=== PATIENT | female | born 1960 | race Caucasian/White ===

== ENCOUNTER 2022-12-11 11:31 | Emergency (ER) | payer OTHER ==
[2022-12-11 11:43] VITALS: BP 114/74; PULSE 78; RESP 16; TEMP 98.2; BMI 29.7
[2022-12-11] MEDS ORDERED: ACETAMINOPHEN 325 MG TABLET (FP) PO ONE (12:41)
[2022-12-11] MEDS ORDERED: ACETAMINOPHEN 325 MG TABLET (FP) ONE (12:43)
== END 2022-12-11 14:26 | disposition home or self-care (01) ==
LOC: JER 11:31 → JERFT 11:31
DX: M25.522 Pain in left elbow (principal); M25.532 Pain in left wrist; W01.0XXA Fall on same level from slipping, tripping and stumbling without subsequent striking against object, initial encounter
CPT/HCPCS: 73060-TC-LT-FY; 73070-TC-LT-FY; 73110-TC-LT-FY; 82962; 99284-25

== ENCOUNTER 2024-11-06 18:44 | Emergency (ER) | payer OTHER ==
[2024-11-06 18:57] VITALS: BP 127/81; PULSE 85; RESP 16; TEMP 98; BMI 26.6
[2024-11-06] MEDS ORDERED: ACETAMINOPHEN 325 MG TABLET (FP) ONE (20:46)
[2024-11-06] MEDS ORDERED: LIDOCAINE 4% PATCH TP ONE (20:47)
[2024-11-06] MEDS: ACETAMINOPHEN 500 MG TABLET (FP) PO ONE (20:52)
[2024-11-06] MEDS: LIDOCAINE 4% PATCH TP ONE (20:52)
[2024-11-06] MEDS ORDERED: LIDOCAINE PATCH REMOVAL MC SCH (22:00)
[2024-11-06 22:16] LABS: BASO % 0.8 % (0-2.0); EOS % 1.3 % (0-4.5); HEMOGLOBIN 15.9 GM/dL (10.7-15.3); LYMPH % 46.4 % (8-40); MCH 29.8 pg (25.7-33.7); MCHC 33.9 g/dl (32.0-36.0); MEAN PLT VOLUME 6.7 fl (7.5-11.1); MONO % 6.1 % (3.8-10.2); NEUT % 45.4 % (42.8-82.8); PLATELET COUNT 256 10^3/uL (134-434); RBC 5.34 M/mm3 (3.60-5.2); RDW 13.1 % (11.6-15.6); WHITE BLOOD COUNT 7.9 K/mm3 (4.0-10.0)
[2024-11-06 22:30] LABS: INR 1.17 (0.83-1.09); PROTHROMBIN TIME (PATIENT) 13.2 SEC (9.7-13.0)
[2024-11-06 22:32] LABS: INR 1.19 (0.83-1.09); PROTHROMBIN TIME (PATIENT) 13.4 SEC (9.7-13.0)
[2024-11-06 22:33] LABS: ACTIVATED PTT 32.2 SECONDS (25.2-36.5)
[2024-11-06 22:34] LABS: POTASSIUM 3.8 mmol/L (3.5-5.1)
[2024-11-06 22:36] LABS: CALCIUM 10.3 mg/dL (8.5-10.1)
[2024-11-06 22:37] LABS: ALBUMIN 4.5 g/dl (3.4-5.0); BLOOD UREA NITROGEN 18.8 mg/dL (7-18)
[2024-11-06 22:40] LABS: CREATININE 0.8 mg/dL (0.55-1.3)
[2024-11-06 22:41] LABS: BILIRUBIN,TOTAL 0.6 mg/dL (0.2-1); TOT PROT 8.2 g/dl (6.4-8.2)
[2024-11-06] MEDS ORDERED: METHOCARBAMOL 500 MG TABLET ONE (22:59)
[2024-11-06] MEDS: METHOCARBAMOL 500 MG TABLET PO ONE (23:07)
== END 2024-11-07 01:47 | disposition left against medical advice (07) ==
LOC: JER 18:44
DX: M25.511 Pain in right shoulder (principal); M79.601 Pain in right arm; G89.29 Other chronic pain; R53.1 Weakness; Z20.822 Contact with and (suspected) exposure to COVID-19
CPT/HCPCS: 0241U-QW; 36415; 71046-TC-FY; 73030-TC-RT-FY; 80053; 84484; 85025; 85610; 85730; 93005; 93010; 99285-25

== ENCOUNTER 2025-06-10 06:04 | Day surgery (SDC) | payer OTHER ==
[2025-06-08 11:20] VITALS: BMI 26.2
[2025-06-10] MEDS ORDERED: ACETAMINOPHEN 500 MG TABLET (FP) PO PRN (08:48)
[2025-06-10 10:46] VITALS: RESP 18
[2025-06-10 12:43] VITALS: BP 129/85; PULSE 53; TEMP 98.1
== END 2025-06-10 13:09 | disposition home or self-care (01) ==
LOC: JASU-SURG 06:04
PROVIDERS: ATTEND Pain Medicine Pain Medicine
PROC: 01HY3MZ Insertion of Neurostimulator Lead into Peripheral Nerve, Percutaneous Approach (ICD-10-PCS; principal; 2025-06-10 12:08)
DX: G89.4 Chronic pain syndrome (principal); M25.512 Pain in left shoulder
CPT/HCPCS: 64555; C1778

== ENCOUNTER 2025-06-23 06:15 | Day surgery (SDC) | payer OTHER ==
[2025-06-23 10:55] VITALS: TEMP 97.5
[2025-06-23] MEDS: LIDOCAINE HCL 1% PRESERVATIVE FREE - 30ML VIAL IJ ONE (11:22)
[2025-06-23 11:57] VITALS: BP 121/81; PULSE 76; RESP 22
== END 2025-06-23 12:20 | disposition home or self-care (01) ==
LOC: JASU-SURG 06:15
PROVIDERS: ATTEND Pain Medicine Pain Medicine
PROC: 01HY3MZ Insertion of Neurostimulator Lead into Peripheral Nerve, Percutaneous Approach (ICD-10-PCS; principal; 2025-06-23 11:30)
DX: G89.4 Chronic pain syndrome (principal); M25.512 Pain in left shoulder
CPT/HCPCS: 64555; C1778